=== PATIENT | female | born 1995 | race Caucasian/White ===

== ENCOUNTER 2021-06-10 03:36 | Emergency (ER) | payer OTHER ==
[2021-06-10 03:45] VITALS: BP 142/78; PULSE 95; TEMP 98.7; BMI 43.9
[2021-06-10] MEDS ORDERED: LORazepam 2 MG TABLET PO ONE (03:46)
[2021-06-10] MEDS ORDERED: LORazepam 0.5 MG TABLET ONE (03:49)
== END 2021-06-10 04:25 | disposition home or self-care (01) ==
LOC: FER 03:36
DX: F41.9 Anxiety disorder, unspecified (principal)
CPT/HCPCS: 93005; 99283-25

== ENCOUNTER 2022-06-06 22:20 | Emergency (ER) | payer OTHER ==
[2022-06-06] MEDS ORDERED: IBUPROFEN 600 MG TABLET (FP) PO ONE ×2 (22:51→22:57)
[2022-06-06 23:44] VITALS: BP 117/72; PULSE 102; TEMP 99.1; BMI 26.5
== END 2022-06-07 03:00 | disposition home or self-care (01) ==
LOC: FER 22:20
DX: M54.50 Low back pain, unspecified (principal)
CPT/HCPCS: 85379; 99283-25

== ENCOUNTER 2022-06-15 11:59 | Emergency (ER) | payer OTHER ==
[2022-06-15 12:30] VITALS: BP 129/83; PULSE 102; TEMP 98.7; BMI 42.6
== END 2022-06-15 13:40 | disposition home or self-care (01) ==
LOC: FER 11:59
DX: R42 Dizziness and giddiness (principal)
CPT/HCPCS: 93005; 99284-25

== ENCOUNTER 2023-09-26 20:18 | Emergency (ER) | payer OTHER ==
[2023-09-26 20:39] VITALS: BP 134/83; PULSE 115; RESP 18; TEMP 98.8; BMI 40.2
[2023-09-26 21:16] LABS: HEMATOCRIT 25.6 % (32.4-45.2); HEMOGLOBIN 8.7 G/dL (10.7-15.3); MCH 31.2 pg (25.7-33.7); MEAN CELL VOLUME 91.8 fl (80-96); MEAN PLT VOLUME 8.2 fl (7.5-11.1); PLATELET COUNT 293.5 10^3/uL (134-434); RBC 2.79 10^6/uL (3.60-5.2); RDW 13.9 % (11.6-15.6); WHITE BLOOD COUNT 17.8 10^3/uL (4.0-10.8)
[2023-09-26 21:48] LABS: ALBUMIN 3.2 g/dl (3.4-5.0); BILIRUBIN,TOTAL 0.2 mg/dl (0.2-1); CALCIUM 8.9 mg/dl (8.5-10.1); CREATININE 0.8 mg/dl (0.6-1.3); TOT PROT 5.3 g/dl (6.4-8.2)
[2023-09-26 22:06] LABS: ANISOCYTOSIS 1+; PLATELET ESTIMATE ADEQUATE
== END 2023-09-26 21:59 | disposition home or self-care (01) ==
LOC: FER 20:18
DX: O90.81 Anemia of the puerperium (principal)
CPT/HCPCS: 36415; 80053; 85027; 99283-25